=== PATIENT | female | born 1980 | race Caucasian/White ===

== ENCOUNTER → 2017-05-11 | Outpatient (CLI) | payer OTHER ==
--- NOTE | 2017-05-11 14:56 | REP ---
ULTRASOUND RIGHT BREAST: Ultrasound right breast performed. Patient reportedly has had prior incision and drainage of a fluid collection of the right breast at an outside institution. There is swelling and pain in this region. Real-time sonographic evaluation over the incision site demonstrates ill-defined heterogeneous hypoechoic tissue. A small fluid collection is seen which measures 1.2 x 1.0 x 0.5 cm. There appears to be a tract from the fluid collection to the skin. The patient does report that there is draining fluid at that location. IMPRESSION: ACR 2 benign findings with small fluid collection at the site of the reported palpable abnormality at the incision site, measuring 1.2 x 1.0 x 0.5 cm. There appears to be a tract into the skin where there is draining fluid. Signed by Irvin Calzada MD 05/11/2017 05:25 P
== END ==
LOC: M RAD 11:48
PROVIDERS: ATTEND Physician Assistant
DX: N63 Unspecified lump in breast (principal)

== ENCOUNTER 2017-11-21 05:53 | Day surgery (SDC) | payer OTHER ==
[2017-11-21] MEDS ORDERED: LIDOCAINE 1% MDV 20ML VIAL SC (06:00)
[2017-11-21 06:34] LABS: HEMATOCRIT 38.5 % (36.0-47.0); HEMOGLOBIN 12.7 g/dl (12.0-16.0); MEAN CORPUSCULAR HEMOGLOBIN 29.3 pg (27.0-33.0); MEAN CORPUSCULAR VOLUME 88.7 fl (80.0-96.0); PLATELET COUNT, AUTOMATED 325 10^3/uL (150-450); RED BLOOD COUNT 4.34 10^6/uL (4.00-5.40); RED CELL DISTRIBUTION WIDTH 13.3 % (11.5-14.5); WHITE BLOOD COUNT 5.5 10^3/uL (4.0-10.0)
[2017-11-21] MEDS: LR 1,000 ML IV (06:45)
[2017-11-21 06:48] LABS: CONTROL LINE HCG INT CTR LINE PRESENT; HCG, SERUM QUALITATIVE NEGATIVE (NEGATIVE)
[2017-11-21] MEDS ORDERED: LIDOCAINE 2% INJ 100 MG/5 ML SDV (FOR ANES.) As Ordered (07:18)
[2017-11-21] MEDS ORDERED: PROPOFOL 200 MG/20 ML VIAL As Ordered (07:18)
[2017-11-21] MEDS ORDERED: MIDAZOLAM INJ 2 MG/2 ML VIAL (J2250) As Ordered (07:19)
[2017-11-21] MEDS ORDERED: fentaNYL 100 MCG/2 ML INJECTION (J3010) As Ordered (07:19)
[2017-11-21] MEDS ORDERED: ONDANSETRON 4MG/2ML VIAL (J2405) As Ordered (08:00)
[2017-11-21] MEDS ORDERED: KETOROLAC 60 MG/2 ML VIAL (J1885) As Ordered (08:01)
[2017-11-21] MEDS ORDERED: dexameTHASONE 4 MG/ML 1ML VIAL (J1100) As Ordered (08:01)
[2017-11-21] MEDS ORDERED: HYDROmorphone HCL 1 MG/ML SYRINGE (J1170) As Ordered (08:57)
[2017-11-21] MEDS: HYDROmorphone HCL 1 MG/ML SYRINGE (J1170) IV ×5 (09:00→09:15)
[2017-11-21] MEDS ORDERED: PERCOCET 5MG/325MG TAB As Ordered (09:08)
[2017-11-21] MEDS: PERCOCET 5MG/325MG TAB PO (09:10)
[2017-11-21] MEDS ORDERED: fentaNYL 100 MCG/2 ML INJECTION (J3010) IV (09:45)
[2017-11-21] MEDS ORDERED: LR 1,000 ML IV (09:45)
[2017-11-21] MEDS ORDERED: ONDANSETRON 4MG/2ML VIAL (J2405) IV (09:45)
== END 2017-11-21 11:05 | disposition home or self-care (01) ==
LOC: M SDC 05:53
DX: N92.5 Other specified irregular menstruation (principal); N84.0 Polyp of corpus uteri; K21.9 Gastro-esophageal reflux disease without esophagitis; E78.4 Other hyperlipidemia; F41.9 Anxiety disorder, unspecified; Z79.899 Other long term (current) drug therapy
CPT/HCPCS: 58558

== ENCOUNTER → 2017-12-13 | Outpatient (CLI) | payer OTHER ==
[~2017-12-13] MED LIST: GASTROGRAFIN SOLUTION 30ML (Q9963) As Ordered; ISOVUE-370 76% 100ML VIAL (Q9967) As Ordered
== END ==
LOC: M RAD 07:54
DX: R10.2 Pelvic and perineal pain (principal)